=== PATIENT | male | born 1980 | race African-American/Black ===

== ENCOUNTER 2021-09-12 20:09 | Emergency (ER) | payer SELFPAY ==
[~2021-09-12] VITALS: Ht 175.3 cm; Wt 102.3 kg
[2021-09-12 20:17] VITALS: BP 177/106; PULSE 80; TEMP 98.8
== END 2021-09-12 21:23 | disposition home or self-care (01) ==
LOC: COL.ER 20:09 → EDBD 20:10 → COL.ER 21:23
DX: T26.02XA Burn of left eyelid and periocular area, initial encounter (principal); T31.0 Burns involving less than 10% of body surface; F17.200 Nicotine dependence, unspecified, uncomplicated; Z28.310 Unvaccinated for COVID-19; X10.2XXA Contact with fats and cooking oils, initial encounter; Y93.G3 Activity, cooking and baking; Y92.009 Unspecified place in unspecified non-institutional (private) residence as the place of occurrence of the external cause; Y99.0 Civilian activity done for income or pay

== ENCOUNTER 2021-12-06 14:39 | Emergency (ER) | payer SELFPAY ==
[~2021-12-06] VITALS: Ht 175.3 cm; Wt 102.3 kg
[2021-12-06 14:45] VITALS: BP 149/72; PULSE 95; TEMP 98.6
== END 2021-12-06 16:04 | disposition home or self-care (01) ==
LOC: COL.ER 14:39
DX: U07.1 COVID-19 (principal); F17.210 Nicotine dependence, cigarettes, uncomplicated; Z28.310 Unvaccinated for COVID-19